=== PATIENT | female | born 1940 | race Caucasian/White ===

== ENCOUNTER 2016-09-11 18:34 | Observation (INO) | payer MEDICARE, OTHER ==
[2016-09-11] VITALS (8 sets, daily range): BP systolic 96–130; BP diastolic 42–81; PULSE 63–131; RESP 12–17; O2SAT 95–98
[~2016-09-11] VITALS: Ht 160 cm; Wt 84.4 kg
[~2016-09-11 18:34] MED LIST: APIX5TAB PO; HYDR25TA4 PO; METO25TA99 PO; MULT-1073 PO; ONDA8TAB7 PO; PARO10TA2 PO; PRAM0.122 PO; PRAV10TA2 PO
--- NOTE | 2016-09-11 18:52 | ED.REPORT ---
HPI-Chest Pain 40 and Over Date of Service September 11, 2016 ED Provider: Dr. Alexandro Ernst The patient is a 76 year old female w/ a hx of chronic atrial fibrillation who presents to the ED due to chest discomfort radiating into the neck and left arm onset 2 hrs PAN DUMPER. She tried 3 sprays of nitro and it was initially slightly helpful but the pain returned. Associated symptoms include nausea, dizziness, left arm ache and weakness, discomfort in her throat and neck. At it's most severe, the pain is 12/10 and at the ED it is 5/10 in her neck. She denies SOB and diaphoresis. She has experienced similar symptoms about a year ago. 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 Nursing Notes Stated Complaint: CHEST PAIN Chief Complaint: Chest Pain Nursing Notes Reviewed: Yes (TIDAL PETROLEUM not reconciled) Allergies: Coded Allergies: Penicillins (Verified Allergy, Unknown, 10/08/14) Uncoded Allergies: PENICILLIN (Allergy, Unknown, RED RASH, 10/08/14) Scheduled Atorvastatin (Lipitor) 20 Mg Tablet 20 MG PO HS Hydrochlorothiazide (Hydrochlorothiazide) 25 Mg Tablet 50 MG PO QAM Metoprolol Succinate ER (Metoprolol Succinate ER) 25 Mg Tab.er.24h 25 MG PO BID Multivits-Min/FA/Lycopene/Lut (Centrum Silver Tablet) 1 Each Tablet 1 EACH PO QAM Omeprazole (Omeprazole) 20 Mg Tablet.dr 20 MG PO QAM Pramipexole Dihydrochloride (Mirapex) 0.125 Mg Tablet 0.125 MG PO HS Rivaroxaban (Xarelto) 20 Mg Tablet 20 MG PO DAILYWD Scheduled PRN Acetaminophen (Acetaminophen) 325 Mg Tablet 650 MG PO Q4H PRN PRN For Headache General Time Seen by MD: 18:51 Chief Complaint Other (chest discomfort) Hx Obtained From: Patient Arrived By: Walk-in Sudden in Onset?: Yes Onset Occurred: 1 - 4 hours ago Symptom Duration: Since onset Location: : Chest left Quality: Painful, Pressure Radiation: : Arm left: Neck Severity: Current: Pain level 5 out of 10 Severity: Maximum: Pain level 10 out of 10 Recent Healthcare: No recent doctor visit, No recent hospitalization Similar Sx Previous: No Past Medical History Past Medical History Notes: Mid October 2014 for syncope, atrial fib Echo: Interpretation Summary The left ventricle is normal in size. Left ventricular wall thickness is borderline increased. Left ventricular systolic function is normal without focal wall motion abnormalities. The ejection fraction is estimated to be 60- 65%. Assessment of diastolic parameters indicates normal left ventricular diastolic function and normal filling pressures. The right ventricle is normal in size and function. The right ventricular systolic pressure is estimated at 22 mmHg assuming a right atrial pressure of 3 mm Hg. Both atria are normal in size. There is no significant valvular heart disease. The aortic root is normal size. Large liver cyst present which is chronic Past Medical History History of chronic atrial fibrillation (records indicate Eliquis use, meds not reconciled on 09/11/16) Hyperlipidemia History depression History restless leg syndrome Past Surgical History None reported Smoking History Former Smoker Social History Drug Use: Denies drug use Ambulatory Status Independent Review of Systems Review of Systems Note: ausea, dizziness, left arm ache and weakness, discomfort in her throat and neck Respiratory: Denies: Shortness of breath Cardiovascular: Reports: Chest pain GI: Reports: Nausea Musculoskeletal: Reports: Extremity pain (left arm), Neck pain (discomfort in throat) Skin: Denies Diaphoresis Neurologic: Reports: Dizziness, Weakness Complete sys rev & neg: except as marked. Physical Exam Initial Vital Signs Vital Signs (First) Date Time Temp Pulse Resp B/P Pulse Ox O2 Delivery O2 Flow Rate FiO2 09/11/16 18:40 37.1 131 16 130/68 97 Room Air 09/11/16 19:28 2 Initial VS: Reviewed, Vital signs abnormal (tachycardia) Head / Eyes: Atraumatic, Normocephalic, PERRL ENT: Mucous membranes moist Extremities: Vascular intact, Neuro intact, No swelling, No tenderness Skin: Warm, Dry General/Constitutional: Awake, Alert, Cooperative, Not toxic appearing Respiratory / Chest: Atraumatic, Breath sounds NL, Breath sounds = bilat, No respiratory distress Heart Rate / Rhythm: Positive: Irreg irregular rhythm, Tachycardia Heart Sounds / Murmur: Positive: Murmur present... (II/) Abdomen: Atraumatic, Soft, Non-tender Interpretation & Diagnostics Lab Results Interpretation Result Diagram: 09/11/16 18409/11/16 184 Test 09/11/16 18:45 White Blood Count 10.0th/mm3 (3.8-10.1) Red Blood Count 4.57mil/mm3 (3.90-5.20) Hemoglobin 14.2g/dL (12.0-15.6) Hematocrit 42.7% (35.0-46.0) Mean Corpuscular Volume 93.4fL (81-100) Mean Corpuscular Hemoglobin 31.1pg (27.0-35.0) Mean Corpuscular Hemoglobin Concent 33.3% (32.0-37.0) Red Cell Distribution Width 13.2% (12.3-15.4) Platelet Count 192bil/L (150-400) Neutrophils (%) (Auto) 76.2% (40-74) Lymphocytes (%) (Auto) 15.3% (14-46) Monocytes (%) (Auto) 7.8% (4-12) Eosinophils (%) (Auto) 0.4% (0-5) Basophils (%) (Auto) 0.2% (0-3) Sodium Level 137mEq/L (134-144) Potassium Level 3.5mEq/L (3.5-5.2) Chloride Level 95mEq/L (97-108) Carbon Dioxide Level 26mmol/L (18-29) Blood Urea Nitrogen 13mg/dL (8-27) Creatinine 0.86mg/dL (0.57-1.00) Estimat Glomerular Filtration Rate 91mL/min (>59) Glucose Level 176mg/dL (60-99) Calcium Level 9.4mg/dL (8.5-10.1) Magnesium Level 1.9mg/dL (1.6-2.6) Total Bilirubin 0.5mg/dL (0.0-1.2) Aspartate Amino Transf (AST/SGOT) 22U/L (0-50) Alanine Aminotransferase (ALT/SGPT) 21U/L (0-32) Alkaline Phosphatase 108U/L (25-165) Troponin T < 0.010ug/L (0.0-0.011) Total Protein 7.0g/dL (6.4-8.4) Albumin 4.0g/dL (3.4-5.0) Hold Cox Top Tube Received (Received) Lab Results Interpretation: CBC normal CMP glucose 176 Troponin #1 negative ECG Interpretation ECG Interpretation: no new intervals compared with 10/28/14 Time: 18:57 Interpreted by: ED physician Normal ECG Interpretation: Normal sinus rhythm (rate 89), No acute ischemic changes ECG Interpretation: EKG suggests flutter ST depression in V4, V5, V6 rate related ischemia Time: 19:01 Interpreted by: ED physician ECG Interpretation: rate related ischemic changes have resolved Time: 19:51 Interpreted by: ED physician Normal ECG Interpretation: Normal sinus rhythm (rate 67) X-Ray Chest Interpretation Chest Xray Interpretation: IMPRESSION: Moderate retrocardiac hiatal hernia. No acute cardiopulmonary disease. Dictated by: Cedric Matos M.D. on 09/11/2016 at 19:58 Approved by: Cedric Matos M.D. on 09/11/2016 at 19:59 View: Portable Interpretation / Wet Read by: Interpret - Radiologist Re-Eval/Medical Decision Med Decision/Clinical Course This is a 76-year-old female with history of paroxysmal atrial fibrillation on Xarelto or anticoagulation presents with an acute onset of chest pain rating the jaw and both arms associated with trace nausea, diaphoresis and is different than ABGs had before. There is no pleuritic discomfort, she reports is a 12 out of 10 initially, but is now just mild. Squeezing ache at times. It is not clearly exertional. She also noted her heart rate was rapid,'s thinking that maybe she got into atrial fibrillation-but this is different than her just going in and out of atrial fibrillation. On exam she appears well, just slightly anxious. She was mostly in sinus, but had a few runs of atrial fibrillation and flutter, and this was captured on the second [id number] revealed atrial flutter with rapid ventricular response and rate related ST depression-although she is on metoprolol at home to help manage her rhythm, took an extra 12.5 mg dose as instructed, and she received an extra 2.5 mg IV in the department-and then subsequent remained in a solid sinus rhythm (demonstrated on EKG #3) about any skin changes. She taken her 's nitroglycerin which did seem to help, so she had Nitropaste applied, 2.250 Dilaudid and relief of chest discomfort. Her starting blood work was normal. She is anticoagulated. Given low-dose aspirin given the history. Chest x-ray is normal. Overall there is certainly a component of dysrhythmia present, but she reports her symptoms are very different than but she has had just atrial fibrillation, and she has not features and iodine of heart score that admission for further monitoring and evaluation is warranted for serial enzymes. Case was discussed with admitting hospitalist. Source of Hx: Old records Time of Eval: 20:00 Re-Evaluation/Progress Note: Pt rechecked. She is pain free. New EKG looks good w/ clear sinus rhythm (rate 67) Consultation : Referral / Consult Name: Mandi Sargent Consulted With: Hospitalist Call Returned at: 20:22 Transport Rn: Agrees with eval, Agrees with plan Note: Case discussed with hospitalist. Counseled Regarding: Diagnosis, Lab results, Need for follow-up, When/why to return to ED Discharge & Departure Primary Impression: Chest pain Chest pain type: unspecified Qualified Code: R07.9 - Chest pain, unspecified Additional Impressions: Dysrhythmia Arrhythmia type: atrial flutter Atrial flutter type: unspecified Qualified Code: I48.92 - Unspecified atrial flutter Anticoagulated by anticoagulation treatment Disposition: Home Discharge Condition All VS Reviewed: Yes Condition: Stable Referrals: Joseluis De La O MD (PCP) Scribe Attestation Portion of this note were transcribed by Vee Neville. I, Dr.Matthew Ernst, personally performed the history, physical exam, and medical decision-making: I reviewed and confirmed the accuracy for the information in the transcribed note. Signed by: reymundo Crenshaw, 09/11/161999 copies to: Joseluis De La O MD, Matthew F MD September 11, 2016 18:52 Vee Neville September 11, 2016 19:02
[2016-09-11] MEDS ORDERED: 0.9% Sodium Chloride 250 ML IV ONE (19:05)
[2016-09-11] MEDS ORDERED: Nitroglycerin 2% 1 Gm Ointment TOPICAL SCH (19:05)
[2016-09-11] MEDS ORDERED: MeTOProlol 1 mg/mL 5 mL Inj IVPUSH ONE (19:05)
[2016-09-11] MEDS ORDERED: HYDROmorphone 0.5 mg/0.5 mL iSecure Syringe IVPUSH ONE (19:05)
[2016-09-11 19:08] LABS: BASOPHILS % (AUTO) 0.2 % (0-3); EOSINOPHILS % (AUTO) 0.4 % (0-5); MONOCYTES % (AUTO) 7.8 % (4-12); Mean Corpuscular Hemoglobin 31.1 pg (27.0-35.0); Mean Corpuscular Volume 93.4 fL (81-100); NEUTROPHILS % (AUTO) 76.2 % (40-74); Platelet Count 192 bil/L (150-400)
[2016-09-11 19:43] LABS: Magnesium 1.9 mg/dL (1.6-2.6)
[2016-09-11 19:47] LABS: TROPONIN T < 0.010 ug/L (0.0-0.011)
--- NOTE | 2016-09-11 20:00 | DRSVH ---
PROCEDURE: X-RAY CHEST ONE VIEW, PORTABLE ([id number]) INDICATIONS: 76 year-old female with chest pain. TECHNIQUE: One view of the chest was acquired. COMPARISON: Merged With [facility], CT, ABD/PELVIS W/CON (PNL), 10/08/2014, 4:24. [facility], , CHEST 2VW, 09/23/2013, 9:20 AM. [facility], CHEST 2VW, 04/03/2010, 9:54 AM. FINDINGS: Surgical changes and devices: None. Lungs and pleura: No pleural effusions or pneumothorax. Lungs are clear. Mediastinum: Moderate retrocardiac hiatal hernia is again noted. Heart size is normal. There is aor tic atherosclerosis. Bones and chest wall: No suspicious bony lesions. Overlying soft tissues appear unremarkable. IMPRESSION: Moderate retrocardiac hiatal hernia. No acute cardiopulmonary disease. Dictated by: Cedric Matos M.D. on 09/11/2016 at 19:58 Approved by: Cedric Matos M.D. on 09/11/2016 at 19:59
[2016-09-11] MEDS ORDERED: fentaNYL-PF 50 mCg/mL 2 mL Inj IVPUSH ONE (20:35)
[2016-09-11] MEDS ORDERED: ATOR20TA PO (21:23)
[2016-09-11] MEDS ORDERED: OMEP20TA86 PO (21:23)
[2016-09-11] MEDS ORDERED: ACET325T51 PO (21:23)
[2016-09-11] MEDS ORDERED: RIVA20TA PO (21:23)
[2016-09-11] MEDS ORDERED: 0.9% Sodium Chloride 1,000 ML IV SCH (21:34)
[2016-09-11] MEDS ORDERED: Alum-Mag Hydrox-Simeth 30 mL Suspension PO PRN ×2 (21:35→22:05)
[2016-09-11] MEDS ORDERED: Ondansetron 2 mg/mL 2 mL Inj IVPUSH PRN ×2 (21:35→22:05)
[2016-09-11] MEDS: 0.9% Sodium Chloride 1,000 ML IV SCH (22:02)
[2016-09-11 22:03] LABS: APPEARANCE,URINE CLEAR (CLEAR,HAZY); COLOR,URINE YELLOW (YELLOW)
[2016-09-11 22:04] LABS: OCCULT BLOOD,URINE NEGATIVE (NEGATIVE); UROBILINOGEN,URINE NORMAL (NORMAL)
[2016-09-11] MEDS ORDERED: Senna-Docusate 8.6-50 mg Tablet PO PRN (22:05)
[2016-09-11] MEDS ORDERED: Atropine 1 mg/10 mL (Code) Syringe IVPUSH PRN (22:05)
[2016-09-11] MEDS ORDERED: Polyethylene Glycol (PEG) 17 Gm Powder PO PRN (22:05)
--- NOTE | 2016-09-11 22:22 | PCM.HPMED ---
Subjective Date of Service September 11, 2016 Primary Provider: Admitting Physician: Mandi Sargent DO Primary Care Physician: Joseluis De La O MD Attending Physician: Mandi Sargent DO Admit Status: From the Emergency Department Chief Complaint: Chest pain and palpitations History of Present Illness: Josette Mcconnell is a 76 year old woman with a PMH of Afib on Xarelto followed by Dr. Penaloza who presents with a 1 day history of chest pain with radiation to the BL arms and jaw with associated palpitations. She states that this afternoon she began to experience the above symptoms, she had left over Metoprolol 12.5 mg which she had been instructed to take in the event of palpitations which she did take in addition to a single dose of her husbands SL nitro which improved her symptoms somewhat. However, she continued to have lingering chest pain, weakness, and dizziness which prompted her to seek further evaluation at the [facility] ED. She states that her symptoms have resolved at this time, though she remains quite concerned given how severe they were earlier in the day. She denies, fevers, chills, changes in bowel or bladder habits, dyspnea, pain with deep inhalation, or hemoptysis. In the ED the patient arrived in Rapid Afib at a rate of 130 and active but reduced chest pain compared to earlier, she was given Nitro paste and Metoprolol IV which resolved her symptoms. Initial Trop in the ED was negative. Review of Systems: Comprehensive ROS negative except as outlined above Allergies Coded Allergies: Penicillins (Verified Allergy, Unknown, 10/08/14) Sulfa (Sulfonamide Antibiotics) (Verified Allergy, Unknown, hives, 09/11/16 ) fine rash Uncoded Allergies: PENICILLIN (Allergy, Unknown, RED RASH, 10/08/14) Home Medications Atorvastatin (Lipitor) 20 Mg Tablet 20 MG PO HS Hydrochlorothiazide (Hydrochlorothiazide) 25 Mg Tablet 50 MG PO QAM Metoprolol Succinate ER (Metoprolol Succinate ER) 25 Mg Tab.er.24h 25 MG PO BID Multivits-Min/FA/Lycopene/Lut (Centrum Silver Tablet) 1 Each Tablet 1 EACH PO QAM Omeprazole (Omeprazole) 20 Mg Tablet.dr 20 MG PO QAM Pramipexole Dihydrochloride (Mirapex) 0.125 Mg Tablet 0.125 MG PO HS Rivaroxaban (Xarelto) 20 Mg Tablet 20 MG PO DAILYWD Scheduled PRN Acetaminophen (Acetaminophen) 325 Mg Tablet 650 MG PO Q4H PRN PRN For Headache PMH History of chronic atrial fibrillation (records indicate Eliquis use, meds not reconciled on 09/11/16) Hyperlipidemia History depression History restless leg syndrome Surgical History None reported Family History Father of CHF, MIx2 Mother of infection Sister alive and well Social History Hx Alcohol Use: No Hx Substance Use: No Hx Tobacco Use: Yes Smoking Status: Former Smoker Exam Vital Signs Vital Sign - Last Date Time Temp Pulse Resp B/P Pulse Ox O2 Delivery O2 Flow Rate FiO2 09/11/16 22:00 36.5 63 16 125/81 96 Room Air 09/11/16 20:07 2 Exam Gen: A/O x3 pleasant cooperative elderly woman in NAD Neck: Supple, non tender, no JVD, no thyromegaly, Full ROM HEENT: PERRL, EOMI, no scleral icterus, no conjunctival pallor, mucous membranes moist CV: RRR, no murmurs rubs or gallops Resp: Lungs CTA BL, no wheezing rales or rhonchi Abd; Soft, non tender, no ogranomegaly, no rebound masses or guarding Extr: No cyanosis clubbing or edema Neuro: CN 2-12 grossly intact, No focal neurologic deficit Psych: Pleasant and appropriate mood and affect Lab and Diagnostics Labs Item Value Date Time Red Blood Count 4.57 mil/mm3 09/11/161844 Neutrophils (%) (Auto) 76.2 % H 09/11/161844 Lymphocytes (%) (Auto) 15.3 % 09/11/161844 Eosinophils (%) (Auto) 0.4 % 09/11/161844 Basophils (%) (Auto) 0.2 % 09/11/161844 Monocytes (%) (Auto) 7.8 % 09/11/161844 Potassium Level 3.5 mEq/L 09/11/161844 Estimat Glomerular Filtration Rate 91 mL/min 09/11/161844 Calcium Level 9.4 mg/dL 09/11/161844 Magnesium Level 1.9 mg/dL 09/11/161844 Total Bilirubin 0.5 mg/dL 09/11/161844 Aspartate Amino Transf (AST/SGOT) 22 U/L 09/11/161844 Alanine Aminotransferase (ALT/SGPT) 21 U/L 09/11/161844 Alkaline Phosphatase 108 U/L 09/11/161844 Troponin T < 0.010 ug/L 09/11/161844 Total Protein 7.0 g/dL 09/11/161844 Albumin 4.0 g/dL 09/11/161844 Result Diagram: 09/11/16184409/11/161844 Microbiology Urine culture pending X-Rays, CTs and MRIs X-RAY CHEST ONE VIEW, PORTABLE IMPRESSION: Moderate retrocardiac hiatal hernia. No acute cardiopulmonary disease. Dictated by: Cedric Matos M.D. on 09/11/2016 at 19:58 Approved by: Cedric Matos M.D. on 09/11/2016 at 19:59 . 12-lead ECG NSR rate 67, probable LAE Assessment & Plan Josette Mcconnell is a 76 year old woman with a PMH of Afib on Xarelto who presents with a several hour history of chest pain with radiation to the BL arms and jaw with associated palpitations. Initial Trop in the ED was negative. Patient admitted for trending of Trop and possible cardiology consult(patient of Dr. Penaloza). 1. Chest pain, POA, acute. Active -Patient Trop negative x1, will continue to trend -Likely secondary to demand ischemia from rapid Afib -ECG unremarkable -Nitro PRN -NS @ 80 ml/hr -NPO after midnight for possible stress test. -ECHO ordered for AM -lipid panel and hgbA1c pending -cardiology consultation tomorrow AM, ordered in [facility]. she is a patient is Dr. Penaloza 2. Paroxysmal Afib, POA, chronic. Active -Continue home Metoprolol succ 25 mg PO BID -Patient responsive to IV metoprolol in the ED -Continue home Xarelto -Aspirin 81 mg PO daily -Consider Dilt or other anti-arrhythmic should the above prove ineffective 3. RLS, POA, chronic. Active -Continue home Mirapex 0.125 QHS 4. Hyperlipidemia, POA, chronic. Active -Continue home Atorvastatin 20 mg PO HS 5. Hyperglycemia, POA, chronicity unknown. Active -HA1c pending -Lispro low dose correctional scale Code Status: FULL CODE Disposition: observation, anticipated length of the <2 midnights, though this may need to be converted to inpatient should the patient's cardiology evaluation warrant further treatment. Pain Evaluation: Adequate Pain Control GI Prophylaxis: H2 susana VTE Prophylaxis: Other (Xarelto as outpatient) Resuscitation Status: CPR: Attempt Resuscitation Attending Statement The patient was seen and examined together with house staff on 09/11/2016 and I agree with the history, exam and plan as outlined in the note above. Brandon Byrd DO September 11, 2016 22:22 Mandi Sargent DO September 12, 2016 03:11
[2016-09-11] MEDS: Sodium Chloride LOK Flush 10 mL Syringe IVFLUSH SCH (22:29)
[2016-09-11] MEDS: MeTOProlol XL 25 mg ER24 Tablet PO SCH (22:44)
[2016-09-12 05:01] LABS: BASOPHILS % (AUTO) 0.4 % (0-3); EOSINOPHILS % (AUTO) 1.1 % (0-5); MONOCYTES % (AUTO) 9.9 % (4-12); Mean Corpuscular Volume 93.2 fL (81-100); NEUTROPHILS % (AUTO) 63.9 % (40-74); Platelet Count 200 bil/L (150-400)
[2016-09-12 05:28] LABS: Magnesium 2.2 mg/dL (1.6-2.6); Phosphorus 4.4 mg/dL (2.5-4.9)
[2016-09-12 06:06] VITALS: BP 116/67; PULSE 116; RESP 16; O2SAT 97
[2016-09-12 08:00] VITALS: PULSE 63
[2016-09-12] MEDS: Sodium Chloride LOK Flush 10 mL Syringe IVFLUSH SCH ×3 (08:30→23:40)
[2016-09-12] MEDS: MeTOProlol XL 25 mg ER24 Tablet PO SCH ×2 (09:16→19:49)
[2016-09-12 09:52] VITALS: BP 119/76; PULSE 58; RESP 18; O2SAT 96
[2016-09-12] MEDS: 0.9% Sodium Chloride 1,000 ML IV SCH ×2 (10:32→23:02)
[2016-09-12 14:07] VITALS: BP 132/78; PULSE 62; RESP 20; O2SAT 95
--- NOTE | 2016-09-12 15:37 | DRSVH ---
[facility] [address] [place] [address] Echocardiogram Report Name: GEOFF CUADRA LStudy Date: 09/12/2016 Height: 63 in Hospital Exam Location: [facility] Weight: 187 lb Gender: Female BSA: 1.9 m2 : 1940 Age: 76 yrs BP: 132/76 mmHg Reason For Study: Chest pain Ordering Physician: Performed By: Irene VALEIST [facility] Interpretation Summary The left ventricle is boderline small in size and appears mildly hyperdynamic with the ejection fraction visually estimated to be 70-75% without focal wall motion abnormalities and appears slightly smaller and more dynamic compared to the previous study. Left ventricular wall thickness is borderline increased. Assessment of diastolic parameters indicates normal left ventricular diastolic function and normal filling pressures. The right ventricle is normal in size and function. The right ventricular systolic pressure is estimated at 27 mmHg assuming a right atrial pressure of 3 mm Hg and is similar compared to the previous study. Both atria are normal in size and unchanged compared to the previous study. There is no significant valvular heart disease. The ascending aorta is mildly enlarged and measures larger compared to the previous study. A fairly large hepatic cyst is again seen, measuring 9.6 x 7.7 cm, similar to the previous study. The patient was in normal sinus rhythm during the exam. Procedure: A two-dimensional transthoracic echocardiogram with color flow and Doppler was performed. The study quality was technically adequate. Comparison is made with the echocardiogram of 03/19/2016. The patient was in normal sinus rhythm during the exam. Left Ventricle: The left ventricle is at the lower limits of normal in size. Left ventricular wall thickness is borderline increased. The left ventricle is mildly hyperdynamic. The ejection fraction is estimated to be 70 -75%. There are no focal wall motion abnormalities. This is slightly smaller and more dynamic compared to the previous study. Assessment of diastolic parameters indicates normal left ventricular diastolic function and normal filling pressures. Right Ventricle: The right ventricle is normal in size and function. Atria: Both atria are normal in size. This is unchanged compared to the previous study. There is no Doppler evidence for an interatrial shunt. Mitral Valve: The mitral valve is normal in structure and function. There is trace mitral regurgitation. This is unchanged compared to the previous study. Aortic Valve: The aortic valve is trileaflet. The aortic valve is mildly calcified. The aortic valve opens well. There is trace aortic regurgitation. Tricuspid Valve: The tricuspid valve is normal in structure and function. There is a trace or physiologic amount of tricuspid regurgitation. The right ventricular systolic pressure is estimated at 27 mmHg assuming a right atrial pressure of 3 mm Hg. This is similar compared to the previous study. Pulmonic Valve: The pulmonic valve is normal in structure and function. There is a trace or physiologic amount of pulmonic regurgitation. There is no significant valvular heart disease. Great Vessels: The aortic root is normal size. The ascending aorta is mildly enlarged. This is measures larger compared to the previous study. The aortic arch is normal in size. The IVC is of normal diameter and collapses greater than 50% with a sniff. This suggests a low right atrial pressure of 3 mm Hg. Pericardium/ Pleura There is no pericardial effusion. A fairly large hepatic cyst is again seen, measuring 9.6 x 7.7 cm, similar to the previous study. MMode/2D Measurements & Calculations LVIDd: 3.8 cm RA long axis LVOT diam: 1.4 cm LVIDs: 1.8 cm LA A2 area: 14.8 cm Ao root diam FS: 53.1 % LA A4 area: 18.6 cm RA area EPSS: 0.07 cm LA length (vol) Aortic Jxn: 2.9 cm IVSd: 1.0 cm : 14.3 cm asc Aorta Diam LVPWd: 1.3 cm LA vol: 47.5 ml RA vol LA vol index : 36.0 ml Ao Arch Diam (Prox RA Trans): 2.4 cm : 19.2 mm2 IVC diam: 0.79 cm LV [place]. diameter/BSA LV sys. diameter/BSA RVD1 (basal) (cm/m^2): 2.0 (cm/m^2): 0.95 Doppler Measurements & Calculations Ao V2 max MV E max sanjiv MV E/A: 0.95 TR max sanjiv : 205.2 cm/sec : 83.2 cm/sec Med Peak E' Sanjiv : 246.3 cm/sec Ao max PG MV A max sanjiv TR max PG : 16.8 mmHg : 87.7 cm/sec E/E' med: 19.1 : 24.3 mmHg Ao mean PG MV P1/2t: 63.8 msec Lat Peak E' Sanjiv PA V2 max : 75.0 cm/sec LVOT Max Sanjiv E/E' lat: 8.5 PA mean PG : 189.5 cm/sec E/e' average PA Accel Time PERLITA(I,D): 1.4 cm MV A dur: 0.13 sec: 0.11 sec sev ratio MV dec time MV P1/2t max sanjiv Ao V2 mean LV V1 max PG : 0.21 sec : 144.8 cm/sec MVA(P1/2t): 3.4 cm2 Ao V2 VTI: 50.1 cmLV V1 VTI PERLITA(V,D): 1.4 cm2 : 46.9 cm PA V2 mean PERLITA indexed to BSA : 53.5 cm/sec (cm^2/m^2): 0.76 Reading Physician:03:36 PM
--- NOTE | 2016-09-12 16:36 | PCM.PNMED ---
Subjective Date of Service September 12, 2016 Subjective Patient was seen and examined at bedside today. Patient denies any chest pain, shortness of breath, nausea, vomiting, diarrhea. Overnight events: None Exam Vital Signs Vital Sign - Last Date Time Temp Pulse Resp B/P Pulse Ox O2 Delivery O2 Flow Rate FiO2 09/12/16 14:07 36.7 62 20 132/78 95 Room Air 09/11/16 20:07 2 Intake and Output 09/11/16 09/11/16 09/12/16 Cumulative From/Thru 15:00 23:00 07:00 09/11/16 18:40 - 09/12/16 06:48 Intake Total 250 ml 400 ml 650 ml Output Total 1900 ml 1900 ml Balance 250 ml -1500 ml -1250 ml Intake Oral 400 ml 400 ml IV Total 250 ml 250 ml Output Urine Total 1900 ml 1900 ml # Bowel Movements 0 0 Exam Physical Exam: GEN: Patient was awake, alert, responding appropriately to questions HEENT: Pupils equal round and reactive to light, extraocular eye muscles intact , Neck soft supple, trachea midline, nomocephalic/atraumatic CV: +S1/S2, regular rate and rhythm, no murmurs auscultated Respiratory: CTAB, no wheezes, rales, rhonchi GI: +bowel sounds x4, soft, compressible, nontender to palpation EXT: no clubbing, cyanosis, edema Neuro: Cranial nerves II-XII grossly intact Psych: mood and affect were appropriate IVs and Medications Medications Reviewed: Medications were reviewed in detail Lab and Diagnostics Result Diagram: 09/12/1641909/12/16419 Microbiology Urine culture pending X-Rays, CTs and MRIs X-RAY CHEST ONE VIEW, PORTABLE IMPRESSION: Moderate retrocardiac hiatal hernia. No acute cardiopulmonary disease. Dictated by: Cedric Matos M.D. on 09/11/2016 at 19:58 Approved by: Cedric Matos M.D. on 09/11/2016 at 19:59 . 12-lead ECG NSR rate 67, probable LAE Assessment & Plan Josette Mcconnell is a 76 year old woman with a PMH of Afib on Xarelto who presents with a several hour history of chest pain with radiation to the BL arms and jaw with associated palpitations. Chest pain, POA, acute. Active -Patient Trop negative x3 -Likely secondary to demand ischemia from rapid Afib -ECG unremarkable -Nitro PRN -Discontinue NS @ 80 ml/hr. -Follow up ECHO -lipid panel and hgbA1c pending -Discussed with cardiology today Dr. Whitehead who feels that is on this patient remained stable she does not need a cardiac cath at this time Paroxysmal Afib, POA, chronic. Active -Continue home Metoprolol succ 25 mg PO BID -Patient responsive to IV metoprolol in the ED -Continue home Xarelto -Aspirin 81 mg PO daily -Consider Dilt or other anti-arrhythmic should the above prove ineffective RLS, POA, chronic. Active -Continue home Mirapex 0.125 QHS Hyperlipidemia, POA, chronic. Active -Continue home Atorvastatin 20 mg PO HS Hyperglycemia, POA, chronicity unknown. Active -HA1c pending -Lispro low dose correctional scale Code Status: FULL CODE Disposition: We will follow-up with the patient's echo if she is doing well and remains asymptomatic the patient should be with to be discharged home tomorrow. The patient converted back into normal sinus rhythm and has been stable throughout the day. GI Prophylaxis: H2 susana VTE Prophylaxis: Other (Xarelto as outpatient) Resuscitation Status: CPR: Attempt Resuscitation Megan Worley DO September 12, 2016 16:36
[2016-09-12 18:10] VITALS: BP 119/77; PULSE 71; RESP 16; O2SAT 95
[2016-09-12 20:50] VITALS: BP 123/82; PULSE 72; RESP 16; O2SAT 97
[2016-09-12] MEDS ORDERED: PRAMIPEXOLE DIHYDROCHLORIDE 0.125 MG PO SCH (21:00)
[2016-09-13 01:01] VITALS: BP 130/74; PULSE 76; RESP 16; O2SAT 94
[2016-09-13 05:17] VITALS: BP 136/83; PULSE 78; RESP 16; O2SAT 96
[2016-09-13 05:48] VITALS: PULSE 68
[2016-09-13 08:26] VITALS: BP 133/81; PULSE 60
[2016-09-13] MEDS: Sodium Chloride LOK Flush 10 mL Syringe IVFLUSH SCH (08:32)
[2016-09-13] MEDS: MeTOProlol XL 25 mg ER24 Tablet PO SCH (08:33)
[2016-09-13] MEDS: 0.9% Sodium Chloride 1,000 ML IV SCH (11:03)
--- NOTE | 2016-09-13 11:21 | PCM.DIMED ---
Discharge Instructions Date of Service September 13, 2016 Dates of Hospitalization September 11, 2016 at 20:41 Discharge Diagnosis Discharge Diagnosis Chest pain Paroxysmal A. fib Restless leg syndrome Hyperlipidemia Hypertriglyceridemia Diet Heart Healthy Activity No restrictions (gradually return to normal daily activities) Call your provider Shortness of breath, Chest pain, Weakness (unilateral) Patient Instructions Follow-up Provider: Roland Penaloza MD Follow-up with PCP in: 2 weeks (if an appointment has not been made please call to schedule an appointment) Provider: Joseluis De La O MD Follow-up in: 1 week (if an appointment has not been made please call to schedule an appointment) Megan Worley DO September 13, 2016 11:21
--- NOTE | 2016-09-13 11:26 | PCM.DC.MED ---
Discharge Summary Date of Service September 13, 2016 Dates of Hospitalization Date of Hospital Admission September 11, 2016 at 20:41 Date of Discharge: September 13, 2016 Providers: Admitting Physician: Mandi Sargent DO Primary Care Physician: Joseluis De La O MD Attending Physician: Mandi Sargent DO Diagnosis at Time of Discharge Diagnosis at Time of Discharge Chest pain Paroxysmal A. fib Restless leg syndrome Hyperlipidemia Hypertriglyceridemia Procedures XRay, CTs & MRIs X-RAY CHEST ONE VIEW, PORTABLE IMPRESSION: Moderate retrocardiac hiatal hernia. No acute cardiopulmonary disease. Dictated by: Cedric Matos M.D. on 09/11/2016 at 19:58 Approved by: Cedric Matos M.D. on 09/11/2016 at 19:59 . ECG 12 Lead NSR rate 67, probable LAE Cardiac Echo Impression Echocardiogram Report Name: JOSETTE CUADRA LStudy Date: 09/12/2016 Height: 63 in Hospital Exam Location: [facility] Weight: 187 lb Gender: Female BSA: 1.9 m2 : 1940 Age: 76 yrs BP: 132/76 mmHg Reason For Study: Chest pain Ordering Physician: Performed By: Irene Omalleyaneesh [facility] Interpretation Summary The left ventricle is boderline small in size and appears mildly hyperdynamic with the ejection fraction visually estimated to be 70-75% without focal wall motion abnormalities and appears slightly smaller and more dynamic compared to the previous study. Left ventricular wall thickness is borderline increased. Assessment of diastolic parameters indicates normal left ventricular diastolic function and normal filling pressures. The right ventricle is normal in size and function. The right ventricular systolic pressure is estimated at 27 mmHg assuming a right atrial pressure of 3 mm Hg and is similar compared to the previous study. Both atria are normal in size and unchanged compared to the previous study. There is no significant valvular heart disease. The ascending aorta is mildly enlarged and measures larger compared to the previous study. A fairly large hepatic cyst is again seen, measuring 9.6 x 7.7 cm, similar to the previous study. The patient was in normal sinus rhythm during the exam. Procedure: A two-dimensional transthoracic echocardiogram with color flow and Doppler was performed. The study quality was technically adequate. Comparison is made with the echocardiogram of 03/19/2016. The patient was in normal sinus rhythm during the exam. Left Ventricle: The left ventricle is at the lower limits of normal in size. Left ventricular wall thickness is borderline increased. The left ventricle is mildly hyperdynamic. The ejection fraction is estimated to be 70 -75%. There are no focal wall motion abnormalities. This is slightly smaller and more dynamic compared to the previous study. Assessment of diastolic parameters indicates normal left ventricular diastolic function and normal filling pressures. Right Ventricle: The right ventricle is normal in size and function. Atria: Both atria are normal in size. This is unchanged compared to the previous study. There is no Doppler evidence for an interatrial shunt. Mitral Valve: The mitral valve is normal in structure and function. There is trace mitral regurgitation. This is unchanged compared to the previous study. Aortic Valve: The aortic valve is trileaflet. The aortic valve is mildly calcified. The aortic valve opens well. There is trace aortic regurgitation. Tricuspid Valve: The tricuspid valve is normal in structure and function. There is a trace or physiologic amount of tricuspid regurgitation. The right ventricular systolic pressure is estimated at 27 mmHg assuming a right atrial pressure of 3 mm Hg. This is similar compared to the previous study. Pulmonic Valve: The pulmonic valve is normal in structure and function. There is a trace or physiologic amount of pulmonic regurgitation. There is no significant valvular heart disease. Great Vessels: The aortic root is normal size. The ascending aorta is mildly enlarged. This is measures larger compared to the previous study. The aortic arch is normal in size. The IVC is of normal diameter and collapses greater than 50% with a sniff. This suggests a low right atrial pressure of 3 mm Hg. Pericardium/ Pleura There is no pericardial effusion. A fairly large hepatic cyst is again seen, measuring 9.6 x 7.7 cm, similar to the previous study. MMode/2D Measurements & Calculations LVIDd: 3.8 cm RA long axis LVOT diam: 1.4 cm LVIDs: 1.8 cm LA A2 area: 14.8 cm Ao root diam FS: 53.1 % LA A4 area: 18.6 cm RA area EPSS: 0.07 cm LA length (vol) Aortic Jxn: 2.9 cm IVSd: 1.0 cm : 14.3 cm asc Aorta Diam LVPWd: 1.3 cm LA vol: 47.5 ml RA vol LA vol index : 36.0 ml Ao Arch Diam (Prox RA Trans): 2.4 cm : 19.2 mm2 IVC diam: 0.79 cm LV [place]. diameter/BSA LV sys. diameter/BSA RVD1 (basal) (cm/m^2): 2.0 (cm/m^2): 0.95 Doppler Measurements & Calculations Ao V2 max MV E max sanjiv MV E/A: 0.95 TR max sanjiv : 205.2 cm/sec : 83.2 cm/sec Med Peak E' Sanjiv : 246.3 cm/sec Ao max PG MV A max sanjiv TR max PG : 16.8 mmHg : 87.7 cm/sec E/E' med: 19.1 : 24.3 mmHg Ao mean PG MV P1/2t: 63.8 msec Lat Peak E' Sanjiv PA V2 max : 75.0 cm/sec LVOT Max Sanjiv E/E' lat: 8.5 PA mean PG : 189.5 cm/sec E/e' average PA Accel Time PERLITA(I,D): 1.4 cm MV A dur: 0.13 sec: 0.11 sec sev ratio MV dec time MV P1/2t max sanjiv Ao V2 mean LV V1 max PG : 0.21 sec : 144.8 cm/sec MVA(P1/2t): 3.4 cm2 Ao V2 VTI: 50.1 cmLV V1 VTI PERLITA(V,D): 1.4 cm2 : 46.9 cm PA V2 mean PERLITA indexed to BSA : 53.5 cm/sec (cm^2/m^2): 0.76 Reading Physician:03:36 PM Hospital Course Josette Cuadra is a 76 year old woman with a PMH of Afib on Xarelto who presents with a several hour history of chest pain with radiation to the BL arms and jaw with associated palpitations. Patient presented to the hospital with the complaint of chest pain and palpitations. The patient was admitted for A. fib with RVR however the patient converted back to normal sinus rhythm with one dose of atenolol 25 mg in the ED. The patient has been stable while here and has had negative troponins 3 and has had normal sinus rhythm on telemetry. 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 For full hospital course see below: Chest pain, POA, acute. Active -Patient Trop negative x3 -Likely secondary to demand ischemia from rapid Afib -ECG unremarkable -Nitro PRN -Discontinue NS @ 80 ml/hr. -Follow up ECHO -lipid panel and hgbA1c pending -Discussed with cardiology today Dr. Whitehead who feels that is on this patient remained stable she does not need a cardiac cath at this time Paroxysmal Afib, POA, chronic. Active -Continue home Metoprolol succ 25 mg PO BID -Patient responsive to IV metoprolol in the ED -Continue home Xarelto -Aspirin 81 mg PO daily -Consider Dilt or other anti-arrhythmic should the above prove ineffective RLS, POA, chronic. Active -Continue home Mirapex 0.125 QHS Hyperlipidemia, POA, chronic. Active -Continue home Atorvastatin 20 mg PO HS Hyperglycemia, POA, chronicity unknown. Active -HA1c pending -Lispro low dose correctional scale Code Status: FULL CODE Exam Vital Signs (Last) Date Time Temp Pulse Resp B/P Pulse Ox O2 Delivery O2 Flow Rate FiO2 09/13/16 08:26 36.5 60 133/81 Room Air 09/13/16 05:17 16 96 09/11/16 20:07 2 Exam Physical Exam: GEN: Patient was awake, alert, responding appropriately to questions HEENT: Pupils equal round and reactive to light, extraocular eye muscles intact , Neck soft supple, trachea midline, nomocephalic/atraumatic CV: +S1/S2, regular rate and rhythm, no murmurs auscultated Respiratory: CTAB, no wheezes, rales, rhonchi GI: +bowel sounds x4, soft, compressible, nontender to palpation EXT: no clubbing, cyanosis, trace edema Neuro: Cranial nerves II-XII grossly intact Psych: mood and affect were appropriate Test 09/11/16 18:45 09/11/16 21:53 09/11/16 22:47 09/12/16 04:20 Hold Cox Top Tube Received (Received) Urine Color Yellow (YELLOW) Urine Appearance Clear (CLEAR,HAZY) Urine pH 6.0 (5.0-8.0) Urine Specific [place] 1.008 (1.003-1.035) Urine Protein Negativemg/dL (NEG,TRACE) Urine Glucose (UA) Negativemg/dL (NEGATIVE) Urine Ketones Negativemg/dL (NEGATIVE) Urine Occult Blood Negative (NEGATIVE) Urine Nitrite Negative (NEGATIVE) Urine Bilirubin Negative (NEGATIVE) Urine Urobilinogen Normalmg/dL (NORMAL) Urine Leukocyte Esterase Trace (NEGATIVE) Urine RBC 0-2/hpf (0-2) Urine WBC 0-5/hpf (0-5) Urine Epithelial Cells Moderate/hpf (NONE-MOD) Urine Crystals None seen (NONE SEEN) Urine Bacteria Few/hpf (NONE-FEW) Urine Hyaline Casts None/lpf (NONE) Urine Granular Casts None seen (NONE SEEN) Urine Waxy Casts None seen (NONE SEEN) Urine Red Blood Cell Casts None seen (NONE SEEN) Urine White Blood Cell Casts None seen (NONE SEEN) Urine Mucus None seen (None Seen) Urine Trichomonas None seen (NONE SEEN) Urine Yeast None (NONE SEEN) Urinalysis Comment None Urine Culture Reflexed Indicated Hemoglobin A1c 5.4% (4.8-5.6) White Blood Count 8.1th/mm3 (3.8-10.1) Red Blood Count 4.42mil/mm3 (3.90-5.20) Hemoglobin 13.7g/dL (12.0-15.6) Hematocrit 41.2% (35.0-46.0) Mean Corpuscular Volume 93.2fL (81-100) Mean Corpuscular Hemoglobin 31.0pg (27.0-35.0) Mean Corpuscular Hemoglobin Concent 33.3% (32.0-37.0) Red Cell Distribution Width 13.1% (12.3-15.4) Platelet Count 200bil/L (150-400) Neutrophils (%) (Auto) 63.9% (40-74) Lymphocytes (%) (Auto) 24.7% (14-46) Monocytes (%) (Auto) 9.9% (4-12) Eosinophils (%) (Auto) 1.1% (0-5) Basophils (%) (Auto) 0.4% (0-3) Sodium Level 139mEq/L (134-144) Potassium Level 4.6mEq/L (3.5-5.2) Chloride Level 99mEq/L (97-108) Carbon Dioxide Level 26mmol/L (18-29) Blood Urea Nitrogen 11mg/dL (8-27) Creatinine 0.65mg/dL (0.57-1.00) Estimat Glomerular Filtration Rate 126mL/min (>59) Glucose Level 108mg/dL (60-99) Calcium Level 9.4mg/dL (8.5-10.1) Phosphorus Level 4.4mg/dL (2.5-4.9) Magnesium Level 2.2mg/dL (1.6-2.6) Total Bilirubin 0.5mg/dL (0.0-1.2) Aspartate Amino Transf (AST/SGOT) 19U/L (0-50) Alanine Aminotransferase (ALT/SGPT) 18U/L (0-32) Alkaline Phosphatase 99U/L (25-165) Troponin T 0.010ug/L (0.0-0.011) Total Protein 6.5g/dL (6.4-8.4) Albumin 3.8g/dL (3.4-5.0) Triglycerides Level 164mg/dL (0-149) Cholesterol Level 179mg/dL (100-199) LDL Cholesterol, Calculated 87.200mg/dL (0-99) VLDL Cholesterol 32.800mg/dL HDL Cholesterol 59mg/dL (>39) Cholesterol/HDL Ratio 3.03 (0.0-4.4) Thyroid Stimulating Hormone (TSH) 2.140uIU/mL (0.450-4.500) Microbiology Results Urine culture pending Discharge Medications Discharge Medications Atorvastatin (Lipitor) 20 Mg Tablet 20 MG PO HS (Reported) Hydrochlorothiazide (Hydrochlorothiazide) 25 Mg Tablet 50 MG PO QAM (Reported) Metoprolol Succinate ER (Metoprolol Succinate ER) 25 Mg Tab.er.24h 25 MG PO BID (Reported) Multivits-Min/FA/Lycopene/Lut (Centrum Silver Tablet) 1 Each Tablet 1 EACH PO QAM (Reported) Omeprazole (Omeprazole) 20 Mg Tablet.dr 20 MG PO QAM (Reported) Pramipexole Dihydrochloride (Mirapex) 0.125 Mg Tablet 0.125 MG PO HS (Reported) Rivaroxaban (Xarelto) 20 Mg Tablet 20 MG PO DAILYWD (Reported) As needed Acetaminophen (Acetaminophen) 325 Mg Tablet 650 MG PO Q4H PRN PRN For Headache ( Reported) Followup Plan Discharge Diet: Heart Healthy Discharge Activity: No restrictions (gradually return to normal daily activities) Follow-up Provider: Roland Penaloza MD Follow-up with PCP in: 2 weeks (if an appointment has not been made please call to schedule an appointment) Provider: Joseluis De La O MD Follow-up in: 1 week (if an appointment has not been made please call to schedule an appointment) Time spent Greater than 35 minutes copies to: Roland Penaloza MD; Joseluis De La O MD, Precious L DO September 13, 2016 11:26
== END 2016-09-13 12:30 | disposition home or self-care (01) ==
LOC: SED 18:34 → MPC 20:41
PROVIDERS: ADMIT Internal Medicine; ATTEND Internal Medicine
DX: R07.9 Chest pain, unspecified (principal); I48.0 Paroxysmal atrial fibrillation; G25.81 Restless legs syndrome; E78.5 Hyperlipidemia, unspecified; E78.1 Pure hyperglyceridemia; R73.9 Hyperglycemia, unspecified; F32.9 Major depressive disorder, single episode, unspecified; Z87.891 Personal history of nicotine dependence; Z79.01 Long term (current) use of anticoagulants
CPT/HCPCS: 36415; 71010; 80053; 80061; 81000; 83036; 83735; 84100; 84443; 84484; 85025; 87086; 87088; 93005; 96361; 96374; 96375; 99285; C8929; G0378; J1170; J3010; J7030; J7050

== ENCOUNTER 2016-11-20 11:49 | Emergency (ER) | payer MEDICARE, OTHER ==
[~2016-11-20] VITALS: Ht 160 cm; Wt 85.9 kg
[~2016-11-20 11:49] MED LIST changes: +ACET325T51 PO; -APIX5TAB PO; +ATOR20TA PO; +OMEP20TA86 PO; -ONDA8TAB7 PO; -PARO10TA2 PO; -PRAV10TA2 PO; +RIVA20TA PO
[2016-11-20 12:04] VITALS: BP 116/56; PULSE 77; RESP 20; O2SAT 99
--- NOTE | 2016-11-20 12:30 | DRSVH ---
PROCEDURE: X-RAY CHEST ONE VIEW, PORTABLE ([id number]) INDICATIONS: cp TECHNIQUE: One view of the chest was acquired. COMPARISON: [facility], CR, XR CHEST 1VW (PORTABLE), 09/11/2016, 19:13. FINDINGS: Surgical changes and devices: None. Lungs and pleura: Small left pleural effusion or pleural scarring. No pneumothorax. Lungs are clear . Mediastinum: Mediastinal contours appear normal. Heart size is normal. Small retrocardiac mass mos t consistent with a hiatal hernia. Bones and chest wall: No suspicious bony lesions. Overlying soft tissues appear unremarkable. IMPRESSION: No significant interval change. Left pleural effusion or pleural scarring. Likely hiatal hernia. Dictated by: Rebel Alvarez M.D. on 11/20/2016 at 12:26 Approved by: Rebel Alvarez M.D. on 11/20/2016 at 12:28
--- NOTE | 2016-11-20 12:38 | ED.REPORT ---
HPI-Chest Pain 40 and Over Date of Service Nov 20, 2016 ED Provider: Nancy Hamm MD 76 y/o female with a hx of paroxysmal A-fib (on Xarelto) presents to the ED complaining of sudden onset of non-radiating substernal chest pressure that lasted about 20 minutes, 4 hours ago while she was resting. Associated sx include nausea, lightheadedness and rapid heart rate of about 113. She states "it felt like it was irregular". The pt took verapamil and 325mg Aspirin which resolved her sx temporarily. An hour later, the chest pressure returned and she also got lightheaded. The pt denies lower extremity edema, fever, cough and dysuria. The pt states as per her echocardiogram last month, her personal lines insurance advisor "thought she may have SVT". Nursing Notes Stated Complaint: CHEST PAIN Chief Complaint: Dysrhythmia/Cardiac Nursing Notes Reviewed: Yes Allergies: Coded Allergies: Penicillins (Verified Allergy, Unknown, 10/08/14) Sulfa (Sulfonamide Antibiotics) (Verified Allergy, Unknown, hives, 09/11/16 ) fine rash Uncoded Allergies: PENICILLIN (Allergy, Unknown, RED RASH, 10/08/14) Scheduled Atorvastatin (Lipitor) 20 Mg Tablet 20 MG PO HS Hydrochlorothiazide (Hydrochlorothiazide) 25 Mg Tablet 50 MG PO QAM Metoprolol Succinate ER (Metoprolol Succinate ER) 25 Mg Tab.er.24h 25 MG PO BID Multivits-Min/FA/Lycopene/Lut (Centrum Silver Tablet) 1 Each Tablet 1 EACH PO QAM Omeprazole (Omeprazole) 20 Mg Tablet.dr 20 MG PO QAM Pramipexole Dihydrochloride (Mirapex) 0.125 Mg Tablet 0.125 MG PO HS Rivaroxaban (Xarelto) 20 Mg Tablet 20 MG PO DAILYWD Scheduled PRN Acetaminophen (Acetaminophen) 325 Mg Tablet 650 MG PO Q4H PRN PRN For Headache General Time Seen by MD: 12:16 Chief Complaint Chest pressure Hx Obtained From: Patient Arrived By: Walk-in Sudden in Onset?: Yes Onset Occurred: 1 - 4 hours ago Symptom Duration: Intermittent Location: : Substernal Quality: Pressure Radiation: : Does not radiate Severity: Current: Moderate Severity: Maximum: Moderate Recent Healthcare: No recent doctor visit Past Medical History Past Medical History Notes: Echo on 10/22/16: Interpretation Summary Left ventricular wall thickness is mildly increased. Immediate post stress images show normal augmentation of all wall segments without any new wall motion abnormality. This was a normal stress echocardiogram. There is no evidence for any myocardial ischemia or previous myocardial infarction. This patients echo suggests a small hyperdynamic LV (volume depleated?) with a normal stress response. The patients chest pain with and following exercise did not corrolate with ECG changes or any abnormalities on the post stress echo. There are no objective findings of ischemia with stress. Past Medical History History of chronic atrial fibrillation (records indicate Eliquis use, meds not reconciled on 09/11/16) Hyperlipidemia History depression History restless leg syndrome Past Surgical History left tibia fx oophrectomy appendectomy Smoking History Former Smoker Social History Drug Use: Denies drug use Ambulatory Status Independent Review of Systems Reports: rapid heart rate Constitutional: Denies: Fever Respiratory: Denies: Non-productive cough Cardiovascular: Reports: Chest pain (chest pressure), Denies: Edema GI: Reports: Nausea Neurologic: Reports: Lightheaded Complete sys rev & neg: except as marked. Female: Denies: Dysuria Physical Exam Initial Vital Signs Vital Signs (First) Date Time Temp Pulse Resp B/P Pulse Ox O2 Delivery O2 Flow Rate FiO2 11/20/16 12:04 36.6 77 20 116/56 99 Room Air Initial VS: Reviewed Head / Eyes: Atraumatic, Normocephalic Neck: Supple, Non-tender, Full range of motion Extremities: Vascular intact, Neuro intact, No swelling, No tenderness Skin: Warm, Dry, No cyanosis Neurologic: Alert, Oriented, Nonfocal General/Constitutional: Awake, Alert, No acute distress, Cooperative Respiratory / Chest: Atraumatic, Breath sounds NL, Breath sounds = bilat, No respiratory distress, No rales, No rhonchi, No wheezing Cardiovascular: Heart rate NL, Regular rhythm, Heart sounds NL, No gallop, No murmurs, No rubs No edema Abdomen: Atraumatic, Soft, Non-tender, No guarding, No rebound Interpretation & Diagnostics Lab Results Interpretation Result Diagram: 11/20/16 1249 11/20/16 1249 Test 11/20/16 12:49 11/20/16 14:27 11/20/16 16:03 White Blood Count 5.9th/mm3 (3.8-10.1) Red Blood Count 4.23mil/mm3 (3.90-5.20) Hemoglobin 13.3g/dL (12.0-15.6) Hematocrit 39.4% (35.0-46.0) Mean Corpuscular Volume 93.1fL (81-100) Mean Corpuscular Hemoglobin 31.4pg (27.0-35.0) Mean Corpuscular Hemoglobin Concent 33.8% (32.0-37.0) Red Cell Distribution Width 13.1% (12.3-15.4) Platelet Count 190bil/L (150-400) Neutrophils (%) (Auto) 68.8% (40-74) Lymphocytes (%) (Auto) 23.1% (14-46) Monocytes (%) (Auto) 7.1% (4-12) Eosinophils (%) (Auto) 0.3% (0-5) Basophils (%) (Auto) 0.5% (0-3) Sodium Level 133mEq/L (134-144) Potassium Level 3.8mEq/L (3.5-5.2) Chloride Level 93mEq/L (97-108) Carbon Dioxide Level 25mmol/L (18-29) Blood Urea Nitrogen 10mg/dL (8-27) Creatinine 0.67mg/dL (0.57-1.00) Estimat Glomerular Filtration Rate 122mL/min (>59) Glucose Level 120mg/dL (60-99) Calcium Level 9.1mg/dL (8.5-10.1) Magnesium Level 1.9mg/dL (1.6-2.6) Total Bilirubin 0.3mg/dL (0.0-1.2) Aspartate Amino Transf (AST/SGOT) 22U/L (0-50) Alanine Aminotransferase (ALT/SGPT) 19U/L (0-32) Alkaline Phosphatase 85U/L (25-165) Total Protein 6.5g/dL (6.4-8.4) Albumin 3.9g/dL (3.4-5.0) Hold Urine Received (Received) Troponin T < 0.010ug/L (0.0-0.011) ECG Interpretation ECG Interpretation: Normal sinus rhythm. Rate 71. Left atrial enlargement Low voltage, precordial leads. Unchanged from ECG on 09/2016 Time: 12:24 Interpreted by: ED physician X-Ray Chest Interpretation Chest Xray Interpretation: IMPRESSION: No significant interval change. Left pleural effusion or pleural scarring. Likely hiatal hernia. Dictated by: Rebel Alvarez M.D. on 11/20/2016 at 12:26 Approved by: Rebel Alvarez M.D. on 11/20/2016 at 12:28 View: Portable, 1 view Re-Eval/Medical Decision Med Decision/Clinical Course 76-year-old female presents the emergency department with neck and chest pain at rest. She does have some concerning associated symptoms, however this pain did occur rest, and she has very recently had a stress echo during which she did not have chest pain that was not associated with any EKG symptoms or findings echo. I have a very low suspicion that her symptoms represent acute coronary syndrome. She does report some relationship to eating including an episode here in the emergency department just after eating the same she may have an operative esophageal issue such as spasm or esophagitis, I discussed this with her and the need for further workup with her primary care team for this. Patient's case was discussed with on-call cardiology as I was not able to reach her regular personal lines insurance advisor, he recommended that she have 2 troponins which were both negative, and called her cardiology's clinic tomorrow to let them know she was seen in the emergency department. I think this is a very reasonable plan. Patient had a normal chest x-ray, I do not suspect alternative causes of her transient chest pain such as pulmonary embolus or thoracic dissection and I did not pursue those diagnoses. Source of Hx: Old records Time of Eval: 14:47 Re-Evaluation/Progress Note: Rechecked pt. She reports chest pain, lightheadedness and dizzyness right after eating. She states now it is getting gradually getting better. She states there is something wrong with her head but in unabble to describe her sx. Discussed lab results, imaging results, diagnosis and plan to discharge. Pt understands and agrees with the plan. F/U instructions and RTER warning given. All questions addressed. One liter bolus is ordered. Time of Eval: 16:42 Re-Evaluation/Progress Note: Pt ambulatory without dizziness. Consultation : Referral / Consult Name: Tana Lin MD Consulted With: Cardiology Call Returned at: 15:08 Transportation Design Engineer: Will see patient, Agrees with eval, Agrees with plan Note: Recommends second troponin and advising the pt to call the clinic tomorrow to let them know she was seen at the ED. Counseled Regarding: Diagnosis, Lab results, Need for follow-up, When/why to return to ED Discharge & Departure Primary Impression: Chest pain Chest pain type: unspecified Qualified Code: R07.9 - Chest pain, unspecified Disposition: Home Discharge Condition All VS Reviewed: Yes Condition: Stable Additional Instructions: Thank you for entrusting us with your care today. Your lab and imaging results were reassuring. Given your very recent normal stress test, it is felt that your chest pain is very unlikely to be related to your heart. Please call your personal lines insurance advisor tomorrow morning and let them know you were seen at the ED today for your symptoms. Return to the emergency department in case of worsening chest pain, shortness of breath or any new or concerning symptoms. Referrals: Joseluis De La O MD (PCP) Roland Penaloza MD Attestation Portions of this note were transcribed by Serena Richards. I,, personally performed the history, physical exam and medical decision-making;I reviewed and confirmed the accuracy of the information in the transcribed note. Signed by Aydee Lara. 11/20/16 16:46 copies to: Roland Penaloza MD; Joseluis De La O MD, Sarah C MD Nov 20, 2016 12:37 Serena Richards Nov 20, 2016 13:01
[2016-11-20 13:11] LABS: BASOPHILS % (AUTO) 0.5 % (0-3); EOSINOPHILS % (AUTO) 0.3 % (0-5); MONOCYTES % (AUTO) 7.1 % (4-12); Mean Corpuscular Hemoglobin 31.4 pg (27.0-35.0); Mean Corpuscular Volume 93.1 fL (81-100); NEUTROPHILS % (AUTO) 68.8 % (40-74); Platelet Count 190 bil/L (150-400)
[2016-11-20 13:34] LABS: TROPONIN T < 0.010 ug/L (0.0-0.011)
[2016-11-20 13:38] LABS: Magnesium 1.9 mg/dL (1.6-2.6)
[2016-11-20] MEDS ORDERED: 0.9% Sodium Chloride 1,000 ML IV ONE (14:55)
[2016-11-20 15:32] VITALS: BP 117/77; PULSE 88; RESP 20; O2SAT 98
[2016-11-20 17:35] VITALS: BP 132/56; PULSE 78; RESP 20; O2SAT 99
== END 2016-11-20 17:36 | disposition home or self-care (01) ==
LOC: EDUNIT# 11:49 → SED 11:49 → EDBD 11:49 → SED 17:36
DX: R07.2 Precordial pain (principal); R11.0 Nausea; R42 Dizziness and giddiness; R00.0 Tachycardia, unspecified; I48.0 Paroxysmal atrial fibrillation; E78.5 Hyperlipidemia, unspecified; Z79.01 Long term (current) use of anticoagulants; Z87.891 Personal history of nicotine dependence; Z88.0 Allergy status to penicillin; Z88.2 Allergy status to sulfonamides
CPT/HCPCS: 36415; 71010; 80053; 83735; 84484; 85025; 93005; 96360; 99285; J7030